=== PATIENT | female | born 1970 | race Caucasian/White ===

== ENCOUNTER 2020-01-18 13:43 | Emergency (ER) | payer SELFPAY ==
[~2020-01-18] VITALS: Ht 154.9 cm; Wt 68.1 kg
[2020-01-18 14:15] VITALS: BP 138/79
--- NOTE | 2020-01-18 15:05 | RAD ---
Left hip 2 views with one view pelvis. HISTORY: Pain after a fall AP view was taken of the pelvis. Right hip appears unremarkable. A pelvic fracture is not identified. AP and lateral views were taken of the left hip. There is no fracture or acute osseous abnormality. IMPRESSION: 1. Negative left hip. 2. No pelvic fracture noted. Electronically signed by: Malvin Crowell MD (01/18/2020 3:03 PM) [facility]
[2020-01-18] MEDS ORDERED: methylPREDNISolone SOD SUCC PF 125 MG/2 ML VIAL. IM ONE (15:15)
[2020-01-18] MEDS ORDERED: KETOROLAC 60 MG/2 ML VIAL. IM ONE (15:15)
[2020-01-18] MEDS ORDERED: ORPHENADRINE CITRATE 60 MG/2 ML VIAL. IM ONE (15:15)
--- NOTE | 2020-01-18 15:29 | PHYS DOC ---
General Adult EDM: Chief Complaint: HIP PAIN HPI: HPI: Patient is a 49 year old female who presents with patient states that 14 January she tripped over a baby gate injuring her left hip. She states she has sharp shooting pain from the lateral low back hip area down to the back of her leg. She states she is ambulatory but is just very painful. She rates her pain a 10 out of 10 and she is tearful. She states she does not have any numbness or tingling. She states that she does not want any narcotics. Review of Systems: Review of Systems: Constitutional: Denies fever or chills. [] Eyes: Denies change in visual acuity. [] HENT: Denies nasal congestion or sore throat. [] Respiratory: Denies cough or shortness of breath. [] Cardiovascular: Denies chest pain or edema. [] GI: Denies abdominal pain, nausea, vomiting, bloody stools or diarrhea. [] : Denies dysuria. [] Musculoskeletal: Denies back pain. Left hip joint pain with radiation down back of leg. [] Integument: Denies rash. [] Neurologic: Denies headache, focal weakness or sensory changes. [] Endocrine: Denies polyuria or polydipsia. [] Lymphatic: Denies swollen glands. [] Psychiatric: Denies depression or anxiety. [] Heart Score: Risk Factors: Risk Factors: DM, Current or recent (<one month) smoker, HTN, HLP, family history of CAD, obesity. Risk Scores: Score 0 - 3: 2.5% MACE over next 6 weeks - Discharge Home Score 4 - 6: 20.3% MACE over next 6 weeks - Admit for Clinical Observation Score 7 - 10: 72.7% MACE over next 6 weeks - Early Invasive Strategies Current Medications: Current Medications Medications (Trade) Dose Ordered Sig/Alok Start Time Stop Time Status Last Admin Dose Admin Ketorolac Tromethamine (Toradol Im) 60 mg 1X ONCE 01/18/20 15:15 01/18/20 15:16 DC 01/18/20 15:16 60 MG Methylprednisolone Sodium Succinate (SOLU-Medrol 125MG VIAL) 125 mg 1X ONCE 01/18/20 15:15 01/18/20 15:16 DC 01/18/20 15:16 125 MG Orphenadrine Citrate (Norflex) 60 mg 1X ONCE 01/18/20 15:15 01/18/20 15:16 DC 01/18/20 15:16 60 MG Allergies: Allergies: Allergies Coded Allergies Type Severity Reaction Last Updated Verified No Known Drug Allergies 01/18/20 No Physical Exam: PE: Constitutional: Well developed, well nourished, no acute distress, non-toxic appearance. [] HENT: Normocephalic, atraumatic, bilateral external ears normal, oropharynx moist, no oral exudates, nose normal. [] Eyes: PERRLA, EOMI, conjunctiva normal, no discharge. [] Neck: Normal range of motion, no tenderness, supple, no stridor. [] Cardiovascular:Heart rate regular rhythm, no murmur [] Lungs & Thorax: Bilateral breath sounds clear to auscultation [] Abdomen: Bowel sounds normal, soft, no tenderness, no masses, no pulsatile masses. [] Skin: Warm, dry, no erythema, no rash. [] Back: No tenderness, no CVA tenderness. [] Extremities: Left lateral hip tenderness, no cyanosis, no clubbing, ROM intact, no edema. [] Neurologic: Alert and oriented X 3, normal motor function, normal sensory function, no focal deficits noted. [] Psychologic: Affect normal, judgement normal, mood normal. [] EKG: EKG: [] Radiology/Procedures: Radiology/Procedures: [] Impression: [facility] [address] [facility] [place] [address] IMAGING REPORT Signed PATIENT: TOM CASEY ACCOUNT: [id number] : 1970 LOCATION: ER AGE: 49 SEX: F EXAM STATUS: REG ER ORD. PHYSICIAN: NORA ZAFAR APRN REASON: pain, fall PROCEDURE: HIP LEFT 2V WITH PELVIS Left hip 2 views with one view pelvis. HISTORY: Pain after a fall AP view was taken of the pelvis. Right hip appears unremarkable. A pelvic fracture is not identified. AP and lateral views were taken of the left hip. There is no fracture or acute osseous abnormality. IMPRESSION: 1. Negative left hip. 2. No pelvic fracture noted. Electronically signed by: Malvin Crowell MD (01/18/2020 3:03 PM) [facility] DICTATED and SIGNED BY: MALVIN CROWELL MD DATE: 01/18/20 0275 [facility] [address] [place] [address] IMAGING REPORT Signed PATIENT: TOM CASEY ACCOUNT: [id number] : 1970 LOCATION: ER AGE: 49 SEX: F EXAM STATUS: REG ER ORD. PHYSICIAN: NORA ZAFAR APRN REASON: LEFT LOWER BACK PAIN AFTER FALL ON JANUARY 14 PROCEDURE: LUMBAR SPINE MIN 4V LUMBAR SPINE MIN 4V History: Reason: LEFT LOWER BACK PAIN AFTER FALL ON JANUARY 14. Instructions: / History: Technique: 5 views of the lumbar spine. Comparison: None. Findings: Straightening of the normal lumbar lordosis. Normal vertebral body height. No fracture. Chronic anterior vertebral body wedging of the lower thoracic and upper lumbar spine. Multilevel degenerative disc changes most prominent L2-L3 and L5-S1. Multilevel facet arthropathy. Vascular calcifications. Impression: 1. Multilevel lumbar spondylosis. Electronically signed by: Paras Schwartz DO (01/18/2020 3:58 PM) [id number] DICTATED and SIGNED BY: PARAS SCHWARTZ DO DATE: 01/18/20 7863 Course & Med Decision Making: Course & Med Decision Making Pertinent Labs and Imaging studies reviewed. (See chart for details) Patient is given Solu-Medrol, orphenadrine and Toradol. She is ambulatory with a steady gait but is very painful. She has full range of motion of the left hip joint and the left knee. Tenderness at lateral upper left hip low back area. No unilateral swelling of the extremity. No calf tenderness. Patient denies nausea, vomiting, abdominal pain, hitting her head, LOC, headache, dizziness, vision changes, numbness or tingling, focal weakness, dysuria, lumbar pain. No tenderness to the cervical spine, thoracic spine, lumbar spine. Full range of motion of the neck. Speaks in full complete sentences. Skin pink warm and dry. No bruising or deformity or swelling of the joint itself. No redness to the joint itself. No laxity. Stated after the medications I have given her that she was not getting any better yet after medication. I have offered her again a narcotic and she stated she really does not want to take any but she will just take just 1. I have ordered 1 Percocet. I also offered her admission due to her intractable pain and she states that she wants to go home. Patient will be discharged home. Patient can follow-up with orthopedics. Patient states she only wants to be "prescribed 2 pain pills." [] Hedy Disclaimer: Hedy Disclaimer: This electronic medical record was generated, in whole or in part, using a voice recognition dictation system. Departure Departure Impression: Primary Impression: Hip pain, left Additional Impression: Sciatica Qualified Codes: M54.32 - Sciatica, left side Disposition: HOME, SELF-CARE Condition: STABLE Referrals: NO PCP (PCP) MICHELLE GANT MD Patient Instructions: Contusion, [id number], Sciatica with [facility]hab[facility] Additional Instructions: Follow-up with orthopedic if needed. Take medication as prescribed. Use lidocaine patches and heat to help with your pain. Scripts Oxycodone HCl/Acetaminophen (Percocet 5-325 mg Tablet) 1 Each Tablet 1 EACH PO Q4HRS, #2 TAB Prov: NORA ZAFAR APRN 01/18/20 Methylprednisolone (MEDROL) 4 Mg Tab.ds.pk 1 PKG PO UD, #1 PKG Prov: NORA ZAFAR APRN 01/18/20 Diclofenac Sodium (DICLOFENAC SODIUM) 50 Mg Tablet.dr 1 TAB PO BID, #20 TAB 1 Refill Prov: NORA ZAFAR APRN 01/18/20 Justicifation of Admission Dx: Justifications for Admission: Justification of Admission Dx: N/A NORA ZAFAR APRN Jan 18, 2020 15:28
--- NOTE | 2020-01-18 16:01 | RAD ---
LUMBAR SPINE MIN 4V History: Reason: LEFT LOWER BACK PAIN AFTER FALL ON JANUARY 14. Instructions: / History: Technique: 5 views of the lumbar spine. Comparison: None. Findings: Straightening of the normal lumbar lordosis. Normal vertebral body height. No fracture. Chronic anterior vertebral body wedging of the lower thoracic and upper lumbar spine. Multilevel degenerative disc changes most prominent L2-L3 and L5-S1. Multilevel facet arthropathy. Vascular calcifications. Impression: 1. Multilevel lumbar spondylosis. Electronically signed by: Paras Schwartz DO (01/18/2020 3:58 PM) [id number]
[2020-01-18] MEDS ORDERED: DICL50TA4 PO (16:16)
[2020-01-18] MEDS ORDERED: METH4TAB2 PO (16:16)
[2020-01-18] MEDS ORDERED: OXYC-325 PO (16:23)
[2020-01-18] MEDS ORDERED: oxyCODONE/APAP 5/325 1 TAB TABLET PO ONE (16:30)
== END 2020-01-18 16:30 | disposition home or self-care (01) ==
LOC: ER 13:43
DX: M54.32 Sciatica, left side (principal); M25.552 Pain in left hip; Z79.899 Other long term (current) drug therapy
CPT/HCPCS: 72110; 73502; 96372; 99284; J1885; J2360; J2930